=== PATIENT | female | born 1935 | race Caucasian/White ===

== ENCOUNTER 2017-04-23 20:35 | Emergency (ER) | payer OTHER ==
[~2017-04-23] VITALS: Ht 149.9 cm; Wt 75.7 kg
[2017-04-23 20:41] VITALS: BP_SYST 162
--- NOTE | 2017-04-23 20:52 | NUR ---
Pt placed to ER bed 08. Report given to HENRY Hyde.
--- NOTE | 2017-04-23 21:16 | NUR ---
Pt brought to ED by daughter with c/o left foot bruising and pain. Reports that pain is 8/10 and begins in left foot and goes up to left knee. Pt fell on 04/21/17 and noticed the bruising today. Allergies to PCN. Ambulatory with walker/cane, which is her norm. Took ibuprofen last night per pt and it was helpful in relieving pain.
--- NOTE | 2017-04-23 21:16 | NUR ---
ED SUPERVISOR [employer] Mahogany at bedside examining pt
[2017-04-23] MEDS ORDERED: ACETAMINOPHEN 500 MG TABLET PO ONE (21:30)
[2017-04-23 22:15] VITALS: BP_SYST 162
--- NOTE | 2017-04-23 22:15 | NUR ---
Patient given written and verbal discharge instructions and verbalizes understanding. ER MD discussed with patient the results and treatment provided. Patient in stable condition. ID arm band removed. Rx of Tylenol Extra Strength given. Patient educated on pain management and to follow up with PMD in 2 days. Pain Scale 3/10 Opportunity for questions provided and answered.
== END 2017-04-23 22:15 | disposition home or self-care (01) ==
LOC: SED 20:35
DX: M25.562 Pain in left knee (principal); S92.322A Displaced fracture of second metatarsal bone, left foot, initial encounter for closed fracture; I10 Essential (primary) hypertension; M10.9 Gout, unspecified; Z88.0 Allergy status to penicillin; W19.XXXA Unspecified fall, initial encounter; Y93.89 Activity, other specified; Y92.89 Other specified places as the place of occurrence of the external cause; Y99.8 Other external cause status
CPT/HCPCS: 73564; 99284

== ENCOUNTER 2017-07-23 11:20 | Emergency (ER) | payer OTHER ==
[~2017-07-23] VITALS: Ht 149.9 cm; Wt 82.1 kg
[2017-07-23 11:30] VITALS: BP_SYST 105
[2017-07-23] MEDS ORDERED: KETOROLAC TROMETHAMINE 60 MG/2 ML VIAL IM ONE (14:45)
[2017-07-23] MEDS ORDERED: HYDROcodone/ACETAMIN 5-325 MG TAB (NORCO/ VICODIN) PO ONE (14:45)
[2017-07-23 16:26] LABS: BASOPHILS % (AUTO) 0.4 % (0.0-2.0); EOSINOPHILS # (AUTO) 0.5 K/uL (0.0-0.4); EOSINOPHILS % (AUTO) 7.2 % (0.0-4.0); HEMATOCRIT 33.7 % (36-48); HEMOGLOBIN 10.6 g/dL (12.0-16.0); LYMPHOCYTES # (AUTO) 1.8 K/uL (1.0-5.5); LYMPHOCYTES % (AUTO) 26.1 % (20.5-51.5); MEAN CORPUSCULAR HEMOGLOBIN 28 pg (27-31); MEAN CORPUSCULAR HGB CONC 32 % (32-36); MEAN CORPUSCULAR VOLUME 90 fL (79.0-98.0); MONOCYTES # (AUTO) 0.8 K/uL (0.0-1.0); MONOCYTES % (AUTO) 10.8 % (1.7-9.3); NEUTROPHILS # (AUTO) 3.9 K/uL (1.8-7.7); NEUTROPHILS % (AUTO) 55.5 % (40.0-70.0); PLATELET COUNT (AUTO) 264 K/uL (130-430); RED BLOOD CELL COUNT(AUTO) 3.76 MIL/uL (4.2-6.2); RED CELL DISTRIBUTION WIDTH 14.4 % (9.0-15.0)
[2017-07-23 16:51] LABS: ANION GAP 7 (5-15); CALCIUM 8.8 mg/dL (8.4-11.0); CHLORIDE 103 mmol/L (98-107); CREATININE 0.77 mg/dL (0.55-1.30); GLUCOSE 94 mg/dL (70-99); POTASSIUM 3.7 mmol/L (3.5-5.1); SODIUM SERUM 140 mmol/L (136-145); UREA NITROGEN, BLOOD 16 mg/dL (8-21)
[2017-07-23 17:02] LABS: ALANINE AMINOTRANSFERASE 24 U/L (12-78); ALBUMIN 2.8 g/dL (3.4-4.8); ASPARTATE AMINOTRANSFERASE 21 U/L (10-37); TOTAL BILIRUBIN 0.4 mg/dL (0.0-1.0)
[2017-07-23 17:58] VITALS: BP_SYST 166
== END 2017-07-23 17:58 | disposition home or self-care (01) ==
LOC: SED 11:20
DX: M13.89 Other specified arthritis, multiple sites (principal); I10 Essential (primary) hypertension; D64.9 Anemia, unspecified; F32.9 Major depressive disorder, single episode, unspecified; H54.8 Legal blindness, as defined in USA; G47.00 Insomnia, unspecified; Z88.0 Allergy status to penicillin
CPT/HCPCS: 29125; 36415; 71010; 73110; 80053; 84484; 85025; 85379; 93005; 96372; 99285; J1885

== ENCOUNTER 2018-06-10 09:35 | Emergency (ER) | payer OTHER ==
[~2018-06-10] VITALS: Ht 149.9 cm; Wt 89.4 kg
[2018-06-10 09:49] VITALS: BP_SYST 157
[2018-06-10] MEDS ORDERED: KETOROLAC TROMETHAMINE 60 MG/2 ML VIAL IM ONE (10:00)
[2018-06-10] MEDS ORDERED: ONDANSETRON 4 MG ODT TAB PO ONE (10:00)
[2018-06-10] MEDS ORDERED: fentaNYL CITRATE/PF 100 MCG/2 ML AMP IM ONE (10:00)
[2018-06-10 11:20] VITALS: BP_SYST 145
== END 2018-06-10 11:20 | disposition home or self-care (01) ==
LOC: SED 09:35
DX: G89.29 Other chronic pain (principal); M25.511 Pain in right shoulder; M25.532 Pain in left wrist; F32.9 Major depressive disorder, single episode, unspecified; M10.9 Gout, unspecified; M19.90 Unspecified osteoarthritis, unspecified site; I10 Essential (primary) hypertension
CPT/HCPCS: 96372; 99284; J1885; J3010; Q0162

== ENCOUNTER 2018-07-10 21:05 | Emergency (ER) | payer OTHER ==
[~2018-07-10] VITALS: Ht 149.9 cm; Wt 81.6 kg
[2018-07-10 21:10] VITALS: BP_SYST 132
[2018-07-10 22:40] LABS: BILIRUBIN,URINE NEGATIVE (NEGATIVE); BLOOD, URINE 1+ (NEGATIVE); CLARITY/URINE CLEAR (CLEAR); COLOR,URINE YELLOW (YELLOW); GLUCOSE,URINE NEGATIVE (NEGATIVE); KETONES,URINE NEGATIVE (NEGATIVE); LEUKOCYTE ESTERASE ,URINE NEGATIVE (NEGATIVE); NITRITE, URINE NEGATIVE (NEGATIVE); PROTEIN URINE NEGATIVE (NEGATIVE); UROBILINOGEN,URINE 0.2 (0.2-1.0)
[2018-07-10 23:03] LABS: BACTERIA,URINE FEW /HPF (None Seen); WBC,URINE 0-3 /HPF (0-3)
[2018-07-10 23:25] LABS: BASOPHILS # (AUTO) 0.1 K/uL (0.0-0.2); BASOPHILS % (AUTO) 0.7 % (0.0-2.0); EOSINOPHILS # (AUTO) 0.4 K/uL (0.0-0.4); HEMATOCRIT 39.3 % (36-48); HEMOGLOBIN 13.1 g/dL (12.0-16.0); LYMPHOCYTES # (AUTO) 2.2 K/uL (1.0-5.5); LYMPHOCYTES % (AUTO) 24.5 % (20.5-51.5); MEAN CORPUSCULAR HEMOGLOBIN 30 pg (27-31); MEAN CORPUSCULAR HGB CONC 34 % (32-36); MEAN CORPUSCULAR VOLUME 88 fL (79.0-98.0); MONOCYTES # (AUTO) 0.9 K/uL (0.0-1.0); MONOCYTES % (AUTO) 10.2 % (1.7-9.3); NEUTROPHILS # (AUTO) 5.3 K/uL (1.8-7.7); NEUTROPHILS % (AUTO) 59.6 % (40.0-70.0); PLATELET COUNT (AUTO) 217 K/uL (130-430); RED BLOOD CELL COUNT(AUTO) 4.45 MIL/uL (4.2-6.2); RED CELL DISTRIBUTION WIDTH 13.6 % (9.0-15.0); WHITE BLOOD COUNT (AUTO) 8.9 K/uL (4.8-10.8)
[2018-07-10] MEDS ORDERED: KETOROLAC TROMETHAMINE 15 MG VIAL IVP ONE (23:30)
[2018-07-10 23:31] LABS: ANION GAP 9 (5-15); CALCIUM 9.6 mg/dL (8.4-11.0); CHLORIDE 102 mmol/L (98-107); CREATININE 0.85 mg/dL (0.55-1.30); GLUCOSE 101 mg/dL (70-99); POTASSIUM 3.9 mmol/L (3.5-5.1); SODIUM SERUM 139 mmol/L (136-145); UREA NITROGEN, BLOOD 10 mg/dL (8-21)
[2018-07-10 23:36] LABS: PROTHROMBIN TIME 10.1 SECS (9.5-12.5)
[2018-07-10 23:37] LABS: ALANINE AMINOTRANSFERASE 29 U/L (12-78); ALBUMIN 3.1 g/dL (3.4-4.8); ASPARTATE AMINOTRANSFERASE 27 U/L (10-37); TOTAL BILIRUBIN 0.5 mg/dL (0.0-1.0)
[2018-07-11 00:50] VITALS: BP_SYST 128
== END 2018-07-11 00:50 | disposition home or self-care (01) ==
LOC: SED 21:05
DX: R07.9 Chest pain, unspecified (principal); M10.9 Gout, unspecified; I10 Essential (primary) hypertension; G47.00 Insomnia, unspecified; M19.90 Unspecified osteoarthritis, unspecified site; Z91.09 Other allergy status, other than to drugs and biological substances
CPT/HCPCS: 36415; 71045; 80053; 81000; 84484; 85025; 85610; 85730; 93005; 96374; 99285; J1885

== ENCOUNTER 2018-08-11 00:37 | Emergency (ER) | payer OTHER ==
[~2018-08-11] VITALS: Ht 149.9 cm; Wt 89.4 kg
[2018-08-11 00:45] VITALS: BP_SYST 154
--- NOTE | 2018-08-11 00:45 | NUR ---
Patient to ER bed 7 to gown for evaluation. Side rails up. Report given to HENRY LEPE.
--- NOTE | 2018-08-11 00:50 | NUR ---
Patient AOx4, ambulatory, presents to ER with complaint of right posterior lower calf swelling and pain 8. Patient has hx of blood clots and varicose veins. Patient also states CP D/T cough x1 week. Patient noted with swelling and redness to bilateral lower legs. No other symptoms or complaints. Daughter at bedside.
--- NOTE | 2018-08-11 00:56 | NUR ---
ER MD Vides at bedside for medical evaluation.
[2018-08-11] MEDS ORDERED: NACL 0.9% 1,000 ML IV ONE (01:00)
--- NOTE | 2018-08-11 01:20 | NUR ---
# 24 gauge angiocath placed to right wrist. Use of asceptic technique. Opsite placed over site. Blood return noted. Flushed with 10 cc of normal saline. No evidence of infiltration noted. Patient tolerated well.
[2018-08-11 01:40] LABS: BASOPHILS # (AUTO) 0.1 K/uL (0.0-0.2); BASOPHILS % (AUTO) 0.7 % (0.0-2.0); EOSINOPHILS # (AUTO) 0.3 K/uL (0.0-0.4); EOSINOPHILS % (AUTO) 4.5 % (0.0-4.0); HEMATOCRIT 37.6 % (36-48); LYMPHOCYTES # (AUTO) 2.1 K/uL (1.0-5.5); LYMPHOCYTES % (AUTO) 27.5 % (20.5-51.5); MEAN CORPUSCULAR HEMOGLOBIN 28 pg (27-31); MEAN CORPUSCULAR HGB CONC 32 % (32-36); MEAN CORPUSCULAR VOLUME 88 fL (79.0-98.0); MONOCYTES # (AUTO) 0.8 K/uL (0.0-1.0); MONOCYTES % (AUTO) 11.1 % (1.7-9.3); NEUTROPHILS # (AUTO) 4.2 K/uL (1.8-7.7); NEUTROPHILS % (AUTO) 56.2 % (40.0-70.0); PLATELET COUNT (AUTO) 288 K/uL (130-430); RED BLOOD CELL COUNT(AUTO) 4.27 MIL/uL (4.2-6.2); RED CELL DISTRIBUTION WIDTH 13.6 % (9.0-15.0); WHITE BLOOD COUNT (AUTO) 7.5 K/uL (4.8-10.8)
[2018-08-11 01:45] LABS: ANION GAP 11 (5-15); CALCIUM 9.2 mg/dL (8.4-11.0); CHLORIDE 102 mmol/L (98-107); CREATININE 0.89 mg/dL (0.55-1.30); GLUCOSE 98 mg/dL (70-99); POTASSIUM 3.5 mmol/L (3.5-5.1); SODIUM SERUM 139 mmol/L (136-145); UREA NITROGEN, BLOOD 14 mg/dL (8-21)
[2018-08-11 01:51] LABS: ALANINE AMINOTRANSFERASE 27 U/L (12-78); ASPARTATE AMINOTRANSFERASE 27 U/L (10-37); TOTAL BILIRUBIN 0.4 mg/dL (0.0-1.0)
[2018-08-11] MEDS ORDERED: SULFAMETHOXAZOLE/TRIMETHOPR DS 1 TABLET PO ONE (02:30)
[2018-08-11 02:41] LABS: BILIRUBIN,URINE NEGATIVE (NEGATIVE); BLOOD, URINE 1+ (NEGATIVE); CLARITY/URINE CLEAR (CLEAR); COLOR,URINE YELLOW (YELLOW); GLUCOSE,URINE NEGATIVE (NEGATIVE); KETONES,URINE NEGATIVE (NEGATIVE); LEUKOCYTE ESTERASE ,URINE TRACE (NEGATIVE); NITRITE, URINE NEGATIVE (NEGATIVE); PH,URINE 5.5 (5.0-8.0); PROTEIN URINE TRACE (NEGATIVE); UROBILINOGEN,URINE 0.2 (0.2-1.0)
--- NOTE | 2018-08-11 02:50 | NUR ---
No adverse reactions noted after medication administration. Will continue to monitor.
[2018-08-11 03:05] VITALS: BP_SYST 144
--- NOTE | 2018-08-11 03:05 | NUR ---
Patient given written and verbal discharge instructions and verbalizes understanding. ER MD discussed with patient the results and treatment provided. Patient in stable condition. ID arm band removed. IV catheter removed intact and dressing applied, no active bleeding. Rx of Bactrim and Promethazine given. Patient educated on pain management and to follow up with PMD. Pain Scale 2/10 tolerable to patient. Opportunity for questions provided and answered. Medication side effect fact sheet provided.
[2018-08-11 03:14] LABS: BACTERIA,URINE FEW /HPF (None Seen)
[2018-08-11 03:29] LABS: HYALINE CASTS, URINE 0-10 /LPF (None Seen)
== END 2018-08-11 03:05 | disposition home or self-care (01) ==
LOC: SED 00:37
DX: L03.115 Cellulitis of right lower limb (principal); J40 Bronchitis, not specified as acute or chronic; F32.9 Major depressive disorder, single episode, unspecified; I10 Essential (primary) hypertension; Z88.0 Allergy status to penicillin
CPT/HCPCS: 36415; 71045; 80053; 81000-TC; 83605; 84484; 85025; 87040-TC; 93005; 93970; 99285

== ENCOUNTER 2020-01-06 19:15 | Inpatient (IN) | payer OTHER ==
[~2020-01-06] VITALS: Ht 149.9 cm; Wt 81.6 kg
[2020-01-06 19:30] VITALS: BP_SYST 155
--- NOTE | 2020-01-06 19:30 | NUR ---
Patient triaged and placed in waiting room. VSS and patient appears in no acute distress at this time. Accompanied by daugther, awaiting available bed, and MD notified of need for MSE.
[2020-01-06 21:21] LABS: BASOPHILS % (AUTO) 0.6 % (0.0-2.0); EOSINOPHILS # (AUTO) 0.4 K/uL (0.0-0.4); EOSINOPHILS % (AUTO) 5.5 % (0.0-4.0); HEMATOCRIT 39.3 % (36-48); LYMPHOCYTES # (AUTO) 1.7 K/uL (1.0-5.5); LYMPHOCYTES % (AUTO) 21.8 % (20.5-51.5); MEAN CORPUSCULAR HEMOGLOBIN 30 pg (27-31); MEAN CORPUSCULAR HGB CONC 33 % (32-36); MEAN CORPUSCULAR VOLUME 90 fL (79.0-98.0); MONOCYTES # (AUTO) 0.8 K/uL (0.0-1.0); NEUTROPHILS # (AUTO) 4.8 K/uL (1.8-7.7); NEUTROPHILS % (AUTO) 62.1 % (40.0-70.0); PLATELET COUNT (AUTO) 250 K/uL (130-430); RED BLOOD CELL COUNT(AUTO) 4.37 MIL/uL (4.2-6.2); RED CELL DISTRIBUTION WIDTH 13.8 % (9.0-15.0); WHITE BLOOD COUNT (AUTO) 7.8 K/uL (4.8-10.8)
[2020-01-06 21:58] LABS: ALANINE AMINOTRANSFERASE 24 U/L (12-78); ALBUMIN 3.1 g/dL (3.4-4.8); ANION GAP 8 (5-15); ASPARTATE AMINOTRANSFERASE 23 U/L (10-37); CALCIUM 9.3 mg/dL (8.4-11.0); CHLORIDE 101 mmol/L (98-107); CREATININE 0.92 mg/dL (0.55-1.30); GLUCOSE 112 mg/dL (70-99); SODIUM SERUM 133 mmol/L (136-145); TOTAL BILIRUBIN 0.4 mg/dL (0.0-1.0); UREA NITROGEN, BLOOD 24 mg/dL (8-21)
--- NOTE | 2020-01-07 01:44 | NUR ---
Patient to ER bed 3 to gown for evaluation. Side rails up. Report given to Mary Ellen FIGUEROA.
--- NOTE | 2020-01-07 02:05 | NUR ---
ER Dr. Pike at bedside examining patient.
--- NOTE | 2020-01-07 02:26 | NUR ---
Patient brought in complaining of productive cough and congestion x 1 month. Pt reports being diagnosed by PMD with bronchitis 1 month ago for cough and congestion. Patient also complaining of neck pain and intermittent non radiating chest pain. Pain 6/10. Denies any nausea, vomiting or diarrhea. No other complaints/injuries per patient or as noted. Will continue to monitor
[2020-01-07] MEDS ORDERED: IOHEXOL 350 mgI/mL, 150 ML INFUS..BTL IV ONE (05:01)
--- NOTE | 2020-01-07 06:00 | NUR ---
ER Dr. Pike at bedside re-examining patient.
[2020-01-07] MEDS ORDERED: LEVO750T45 PO (06:18)
[2020-01-07] MEDS ORDERED: ALLO300T2 PO (06:18)
[2020-01-07] MEDS ORDERED: TYC3 PO (06:18)
[2020-01-07] MEDS ORDERED: MECL12.584 PO (06:18)
[2020-01-07] MEDS ORDERED: METR500T PO (06:18)
[2020-01-07] MEDS ORDERED: ROPI0.252 PO (06:18)
[2020-01-07] MEDS ORDERED: OLME40TA12 PO (06:18)
[2020-01-07] MEDS ORDERED: SERT-131 PO (06:18)
--- NOTE | 2020-01-07 06:28 | NUR ---
Awaiting bed assignment.
--- NOTE | 2020-01-07 06:28 | NUR ---
Patient will be admitted to care of Dr. Ovalle. Admitted to Telemetry unit. Belongings list completed. Complete and up to date summary report printed. SBAR report to be given at bedside with opportunity for questions.
--- NOTE | 2020-01-07 07:13 | NUR ---
REPORT RECEIVED FROM SARAH FIGUEROA. CURRENTLY WAITING FOR A TELE BED.
--- NOTE | 2020-01-07 07:13 | NUR ---
Report given to HENRY Farias. All care endorsed.
--- NOTE | 2020-01-07 08:00 | NUR ---
Notes- in bed, awake, alert forgetfull, family at bedside. denies any chest pain or discomfort at this time. oriented to call light use. provided bedside commode at this time. Sinus on the monitor. Will continue to monitor.
--- NOTE | 2020-01-07 08:29 | NUR ---
Patient will be admitted to care of Dr. Ovalle. Admitted to tele unit. Will go to room 124-a. Belongings list completed. Complete and up to date summary report printed. SBAR report to be given at bedside with opportunity for questions. bedside reprt given. Iv is on the RFA 20g patent and infusing well.
--- NOTE | 2020-01-07 08:41 | NUR ---
Admission Note Received patient from ER with diagnosis of chest pain. Initial Plan of Care discussed-patient verbalized understanding. Oriented to room, call light, pain management and safety.
--- NOTE | 2020-01-07 09:13 | NUR ---
CHEST PAIN CONSULT FOR . NURSE NOTIFY DOCTOR WHILE DOING HIS ROUNDS.
[2020-01-07 09:24] VITALS: BP_SYST 154
--- NOTE | 2020-01-07 09:30 | NUR ---
MD rounds- Seen by santo at bedside.
[2020-01-07] MEDS ORDERED: ALLOPURINOL 300 MG TABLET (ZYLOPRIM) PO ONE (11:00)
--- NOTE | 2020-01-07 11:00 | NUR ---
MD ROUNDS Seen by Dr. michael at bedside and spoke to family.
--- NOTE | 2020-01-07 11:14 | NUR ---
Notes- resting at this time. family at bedside. denies any chest pain or discomfort.
[2020-01-07] MEDS ORDERED: IPRATROPIUM/ALBUTEROL SULFATE 3 ML AMPUL.NEB (DUONEB) INH PRN (11:45)
[2020-01-07] MEDS ORDERED: LOSARTAN POTASSIUM 50 MG TABLET (COZAAR) PO ONE (12:30)
[2020-01-07 14:36] VITALS: BP_SYST 154
[2020-01-07] MEDS: roPINIRole HCL 0.25 MG ( REQUIP )TABLET PO SCH ×2 (14:39→20:28)
[2020-01-07 16:00] VITALS: BP_SYST 122
--- NOTE | 2020-01-07 16:02 | NUR ---
Notes- Resting in bed, family at bedside. denies any pain or discomfort. No acute distress noted.
--- NOTE | 2020-01-07 18:20 | NUR ---
Notes- Resting in bed, denies any pain or discomfort. No change in assessment. Will endorse
[2020-01-07 19:40] VITALS: BP_SYST 114
--- NOTE | 2020-01-07 19:40 | NUR ---
INITIAL NOTES PATIENT IS LAYING IN BED AND STABLE. NO S/S OF RESPIRATORY DISTRESS NOTED. PATIENT UNSUCCESSFULLY DEMONSTRATES USAGE OF CALL LIGHT AT THIS TIME. WILL CONTINUE TO MONITOR FREQUENTLY. PLAN OF CARE IS DISCUSSED WITH PATIENT AT THIS TIME. BED IS LOCKED, ALARMED, AND AT THE LOWEST POSITION. FALL, SAFETY, ASPIRATION, AND RESPIRATORY PRECAUTIONS WILL BE IN PLACE THROUGHOUT THE SHIFT.
--- NOTE | 2020-01-07 20:40 | NUR ---
PATIENT FAMILY IS BY BEDSIDE AT THIS TIME. PATIENT IS STABLE AND SITTING IN BED. NO S/S OF RESPIRATORY DISTRESS NOTED. CALL LIGHT IN REACH. BED IS LOCKED, ALARMED, AND AT THE LOWEST POSITION.
--- NOTE | 2020-01-07 22:40 | NUR ---
PATIENT USED THE RESTROOM AT THIS TIME. PATIENT TOLERATED WELL. PATIENT IS STABLE. NO S/S OF RESPIRATORY DISTRESS NOTED. CALL LIGHT IN REACH. BED IS LOCKED, ALARMED, AND AT THE LOWEST POSITION.
[2020-01-08 00:11] VITALS: BP_SYST 146
--- NOTE | 2020-01-08 00:40 | NUR ---
PATIENT IS SLEEPING AND STABLE. NO S/S OF RESPIRATORY DISTRESS NOTED. CALL LIGHT IN REACH. BED IS LOCKED, ALARMED, AND AT THE LOWEST POSITION.
--- NOTE | 2020-01-08 01:20 | NUR ---
Patient is doing well, her family is at her bedside. She is being groomer by her daughter and she seems to be in good spirits. Will continue to assess. Juliana FIGUEROA
--- NOTE | 2020-01-08 04:32 | NUR ---
PATIENT IS STABLE AND SLEEPING. NO S/S OF RESPIRATORY DISTRESS NOTED. CALL LIGHT IN REACH. BED IS LOCKED, ALARMED, AND AT THE LOWEST POSITION.
--- NOTE | 2020-01-08 06:33 | NUR ---
CLOSING NOTES PATIENT IS RESTING IN BED. PATIENT IS STABLE. NO S/S OF RESPIRATORY DISTRESS NOTED. CALL LIGHT IN REACH. BED IS LOCKED, ALARMED, AND AT THE LOWEST POSITION. FALL, SAFETY, ASPIRATION, AND RESPIRATORY PRECAUTIONS HAS BEEN IN PLACE THROUGHOUT THE SHIFT. WILL CONTINUE TO MONITOR UNTIL REPORT IS GIVEN AM NURSE BY BEDSIDE.
[2020-01-08 07:30] VITALS: BP_SYST 89
[2020-01-08 08:00] VITALS: BP_SYST 89
[2020-01-08] MEDS: SERTRALINE HCL 50 MG TABLET PO SCH (08:25)
[2020-01-08] MEDS: ALLOPURINOL 300 MG TABLET (ZYLOPRIM) PO SCH (08:31)
--- NOTE | 2020-01-08 08:59 | NUR ---
Nutrition Update Min Scale 17 noted. Pt admitted for chest pain. Diet: cardiac BMI: 36.4 kg/m2 RD to follow per nutrition care standards.
--- NOTE | 2020-01-08 09:00 | NUR ---
PATIENT IS STABLE, A LITTLE HARD OF HEARING BUT HEARS WELL WHEN HER HEARING AIDS ARE ON. SHE COMPREHENDS ORDERS, ATE BREAKFAST, TOOK HER MEDS AND WENT TO SLEEP. FÉLIX FIGUEROA
[2020-01-08] MEDS: roPINIRole HCL 0.25 MG ( REQUIP )TABLET PO SCH ×3 (09:48→22:15)
[2020-01-08] MEDS: LOSARTAN POTASSIUM 50 MG TABLET (COZAAR) PO SCH (09:50)
[2020-01-08 12:00] VITALS: BP_SYST 108
--- NOTE | 2020-01-08 12:46 | NUR ---
[facility] consult called: for Dr. Hernandez, regarding pna, ordered by Dr. Ovalle, spoke with Marii at exchange.
[2020-01-08 16:22] VITALS: BP_SYST 141
--- NOTE | 2020-01-08 16:28 | NUR ---
Patient is at bedside sitting on chair. She states that she feels nausea, I paged Dr. Ovalle to ask for nausea medication. I am waiting for call back. Tuan FIGUEROA
[2020-01-08] MEDS: BUDESONIDE 0.5 MG/2 ML AMPUL.NEB INH SCH (19:55)
[2020-01-08 20:00] VITALS: BP_SYST 137
[2020-01-08] MEDS: ONDANSETRON HCL 4 MG/2 ML VIAL IVP PRN (22:19)
--- NOTE | 2020-01-08 23:19 | NUR ---
CONSULT DOCTOR MARK ALREADY SAW PT
[2020-01-09] VITALS (7 sets, daily range): BP systolic 98–136
[2020-01-09] MEDS: BUDESONIDE 0.5 MG/2 ML AMPUL.NEB INH SCH ×2 (07:00→22:34)
[2020-01-09 07:21] LABS: BASOPHILS % (AUTO) 0.6 % (0.0-2.0); EOSINOPHILS # (AUTO) 0.2 K/uL (0.0-0.4); EOSINOPHILS % (AUTO) 3.4 % (0.0-4.0); HEMATOCRIT 35.5 % (36-48); HEMOGLOBIN 11.9 g/dL (12.0-16.0); LYMPHOCYTES # (AUTO) 1.5 K/uL (1.0-5.5); LYMPHOCYTES % (AUTO) 21.8 % (20.5-51.5); MEAN CORPUSCULAR HEMOGLOBIN 30 pg (27-31); MEAN CORPUSCULAR HGB CONC 33 % (32-36); MEAN CORPUSCULAR VOLUME 90 fL (79.0-98.0); MONOCYTES # (AUTO) 0.8 K/uL (0.0-1.0); MONOCYTES % (AUTO) 11.3 % (1.7-9.3); NEUTROPHILS # (AUTO) 4.4 K/uL (1.8-7.7); NEUTROPHILS % (AUTO) 62.9 % (40.0-70.0); PLATELET COUNT (AUTO) 244 K/uL (130-430); RED BLOOD CELL COUNT(AUTO) 3.97 MIL/uL (4.2-6.2); RED CELL DISTRIBUTION WIDTH 13.7 % (9.0-15.0)
[2020-01-09 07:36] LABS: ALANINE AMINOTRANSFERASE 24 U/L (12-78); ALBUMIN 2.8 g/dL (3.4-4.8); ANION GAP 8 (5-15); ASPARTATE AMINOTRANSFERASE 26 U/L (10-37); CALCIUM 8.8 mg/dL (8.4-11.0); CHLORIDE 96 mmol/L (98-107); GLUCOSE 104 mg/dL (70-99); POTASSIUM 3.8 mmol/L (3.5-5.1); SODIUM SERUM 130 mmol/L (136-145); TOTAL BILIRUBIN 0.5 mg/dL (0.0-1.0); UREA NITROGEN, BLOOD 16 mg/dL (8-21)
[2020-01-09] MEDS: LOSARTAN POTASSIUM 50 MG TABLET (COZAAR) PO SCH (09:23)
[2020-01-09] MEDS: ALLOPURINOL 300 MG TABLET (ZYLOPRIM) PO SCH (09:23)
[2020-01-09] MEDS: SERTRALINE HCL 50 MG TABLET PO SCH (09:24)
[2020-01-09] MEDS: roPINIRole HCL 0.25 MG ( REQUIP )TABLET PO SCH ×3 (09:24→22:07)
--- NOTE | 2020-01-09 10:02 | NUR ---
Found on the floor, asked for pain meds for the patient. Waiting for order, gave ice pack in the meantime. Tuan FIGUEROA
--- NOTE | 2020-01-09 11:44 | NUR ---
CONSULTATION PAGED/CALLED Reason for Consultation: [] CONFUSION Person Who was Notified: [] PACO Consulting Physician: [] DR Marky HERNANDEZ Production Technologist Specialty: [] NEUROLOGY Ordering Physician: [] DR VERDUGO
[2020-01-09] MEDS: ONDANSETRON HCL 4 MG/2 ML VIAL IVP PRN (12:40)
--- NOTE | 2020-01-09 15:00 | NUR ---
Patient family requesting a discharge, consulted with and he advised against it, he wants a neuro consult before discharge. The process was explained to the family members. They stated that they will have a family member stay with her overnight. Bed is low, locked, 2 side rails up and call light within reach. Tuan FIGUEROA
--- NOTE | 2020-01-09 15:14 | NUR ---
Paged , second page to get pain medication. Waiting for jez. Tuan FIGUEROA
[2020-01-09] MEDS: ACETAMINOPHEN 325 MG TABLET PO PRN (15:59)
--- NOTE | 2020-01-09 18:07 | NUR ---
Patient is stable, sleeping. bed is low, locked, 2 side rails up and call light within reach. Tuan FIGUEROA
--- NOTE | 2020-01-09 18:57 | NUR ---
Neuro Consult: Seen by Dr. Sal , new orders noted. Cardio Dept is aware of EEG order.
--- NOTE | 2020-01-09 19:20 | NUR ---
Opening note Received patient resting in bed, awake, no s/sx of distress. Daughter in law at bedside with patient. IV is SL to RFA. Bed is locked in lowest position, side rails up 2x, updated board.
--- NOTE | 2020-01-09 20:22 | NUR ---
Taken to CT Kiran from radiology took patient for CT study
--- NOTE | 2020-01-09 20:48 | NUR ---
returned from CT
--- NOTE | 2020-01-09 20:53 | NUR ---
Ultrasound Patient ambulated to restroom and returned to w/ assist. Daughter in law and son at bedside. unit technician at bed side for US venous doppler study.
[2020-01-10] MEDS: ACETAMINOPHEN 325 MG TABLET PO PRN (00:06)
--- NOTE | 2020-01-10 00:10 | NUR ---
Patient care Patient provided w/ partial bed bath, new gown. V/S taken and has temp of 99.4; administered Tylenol will f/u. Son at bedside w/ patient. No further needs, call light w/in reach.
--- NOTE | 2020-01-10 01:35 | NUR ---
temp reassess temp decreased to 98.4, patient resting in comfortable position, no sign of distress. Son is sitting at bedside.
[2020-01-10 01:58] VITALS: BP_SYST 116
--- NOTE | 2020-01-10 03:30 | NUR ---
Resting Patient resting w/ eyes closed, nonlabored breathing. Son visiting at bedside also resting on chair w/ eyes closed.
--- NOTE | 2020-01-10 06:39 | NUR ---
closing note Patient resting in comfortable position, nonlabored breathing. Son at bedside with mother and he reports assisted her to restroom a few minutes ago. Needs met throughout shift, safety precautions in place, will endorse care to incoming nurse.
--- NOTE | 2020-01-10 07:50 | NUR ---
INITIAL NOTE RECEIVED PT IN BED, NO S/S OF DISTRESS OR SOB NOTED, PT HAS NO C/O PAIN AT THIS TIME, PT IN STABLE CONDITION, PT AAOX3, VERBAL, MARSHALLESE SPEAKING. PT RESTING COMFORTABLY, BED AT LOWEST POSITION, CALL LIGHT WITHIN REACH, WILL CONTINUE TO MONITOR PT FOR ANY CHANGES, FALL AND SAFETY PRECAUTIONS IN PLACE. FAMILY AT BEDSIDE. PT ON OXYGEN 1 LITER VIA NASAL CANNULA, SATURATION OF 93%.
[2020-01-10 08:20] VITALS: BP_SYST 118
[2020-01-10] MEDS: SERTRALINE HCL 50 MG TABLET PO SCH (08:56)
[2020-01-10] MEDS: roPINIRole HCL 0.25 MG ( REQUIP )TABLET PO SCH ×3 (08:56→20:20)
[2020-01-10] MEDS: ALLOPURINOL 300 MG TABLET (ZYLOPRIM) PO SCH (08:56)
[2020-01-10] MEDS: LOSARTAN POTASSIUM 50 MG TABLET (COZAAR) PO SCH (08:57)
--- NOTE | 2020-01-10 10:30 | NUR ---
ROUNDS PT IN BED, NO S/S OF DISTRESS OR SOB NOTED, PT HAS NO C/O PAIN AT THIS TIME, PT IN STABLE CONDITION, FAMILY AT BEDSIDE, WILL CONTINUE TO MONITOR PT FOR ANY CHANGES.
--- NOTE | 2020-01-10 12:17 | NUR ---
ROUNDS DR LUCINA JASON, WENT TO SEE PT AND SPOKE WITH PT AND FAMILY IN REGARDS TO POC. ANSWERED ALL QUESTIONS.
[2020-01-10 12:30] VITALS: BP_SYST 134
--- NOTE | 2020-01-10 12:40 | NUR ---
CONSULTATION PAGED/CALLED Reason for Consultation: ABDOMINAL PAIN Person Who was Notified: SPOKE WITH FILEMON FROM Consulting Physician: IS COMPRESSOR MECHANIC FOR DR. ENCISO Medical Office Manager Specialty: Ordering Physician: Addendum: 01/10/20 at 1245 by Melisa Mata CNA [employer] SPECIALTY : GI ORDERING PHYSICIAN :
[2020-01-10] MEDS: ONDANSETRON HCL 4 MG/2 ML VIAL IVP PRN ×3 (12:59→23:17)
--- NOTE | 2020-01-10 13:29 | NUR ---
MEDICATION REASSESSMENT PT NO LONGER FEELS NAUSEAS, NO VOMITING NOTED. WILL CONTINUE TO MONITOR PT FOR ANY CHANGES.
[2020-01-10 16:20] VITALS: BP_SYST 103
--- NOTE | 2020-01-10 18:32 | NUR ---
CLOSING NOTE PT IN BED, NO S/S OF DISTRESS OR SOB NOTED, PT HAS NO C/O PAIN AT THIS TIME, PT IN STABLE CONDITION, PT AAOX3, VERBAL, FRISIAN SPEAKING. PT RESTING COMFORTABLY, BED AT LOWEST POSITION, CALL LIGHT WITHIN REACH, WILL ENDORSE CARE OF PT TO INCOMING NURSE, FALL AND SAFETY PRECAUTIONS IN PLACE. FAMILY AT BEDSIDE. PT ON OXYGEN 1 LITER VIA NASAL CANNULA, SATURATION OF 93%. NEEDS MET THROUGHOUT SHIFT. EEG WAS DONE BY TECH.
--- NOTE | 2020-01-10 19:25 | NUR ---
veterinary technician assistant Sheeba heat treatment technician came to room for study and reports she is unable to do study d/t patient reporting nausea. I informed her I can give Zofran for nausea and she said, no d/t study will make patient uncomfortable and she said it is better to do study in am. It will be done first thing at 0700.
[2020-01-10 20:00] VITALS: BP_SYST 132
[2020-01-10] MEDS: BUDESONIDE 0.5 MG/2 ML AMPUL.NEB INH SCH (20:55)
--- NOTE | 2020-01-10 22:45 | NUR ---
IV start IV to RFA was occluded and a new IV was started. A # 20 gauge angiocath was placed to LAC. Use of asceptic technique. Opsite placed over site. Blood return noted and it was flushed with 10 cc of normal saline. No evidence of infiltration noted. Patient tolerated . Family at bedside.
--- NOTE | 2020-01-10 23:20 | NUR ---
radha Patient reporting nausea and she was given Zofran. Family left for the night, bed alarm is on and call light w/in reach. Will continue to monitor.
--- NOTE | 2020-01-11 00:25 | NUR ---
V/S / NPO Patient's VSS. She was reminded that she will be NPO. She was offered water and juice and after she was done the food items at bedside were removed from reach. The board was updated and an NPO cone was place on bedside tray.
--- NOTE | 2020-01-11 02:15 | NUR ---
OOB -restroom Assisted patient out of bed to restroom, she voided, then washed hands and brushed teeth. She rested on chair a few minutes while I changed bed linen. She returned to bed, bed alarm on and call light w/in reach. Will continue to monitor.
--- NOTE | 2020-01-11 04:40 | NUR ---
Resting Patient is resting w/ eyes closed. Symmetrical rise and fall of chest, nonlabored breathing. Safety precautions in place and call light w/in reach.
--- NOTE | 2020-01-11 06:15 | NUR ---
restroom Assisted patient out of bed to restroom, she voided, then washed hands and returned to bed. Presently denies nausea or abdominal discomfort. Bed alarm on and call light w/in reach. Will continue to monitor.
--- NOTE | 2020-01-11 07:00 | NUR ---
closing note Patient resting in comfortable position, nonlabored breathing, no s/sx of distress. IV is SL to LAC, Safety precautions in place. Needs met throughout shift, will endorse care to incoming nurse.
--- NOTE | 2020-01-11 07:40 | NUR ---
Initial notes- assisted to the bathroom and voided. pt denies any chest pain, abdominal pain. pt complains of being dizzy upon getting up. on room air, tolerating well. no acute distress noted. Keep npo for abdominal ultrasound this morning.
[2020-01-11 08:00] VITALS: BP_SYST 139
[2020-01-11] MEDS: BUDESONIDE 0.5 MG/2 ML AMPUL.NEB INH SCH (08:14)
[2020-01-11 08:15] VITALS: BP_SYST 139
[2020-01-11] MEDS: ALLOPURINOL 300 MG TABLET (ZYLOPRIM) PO SCH (09:16)
[2020-01-11] MEDS: SERTRALINE HCL 50 MG TABLET PO SCH (09:16)
[2020-01-11] MEDS: LOSARTAN POTASSIUM 50 MG TABLET (COZAAR) PO SCH (09:17)
[2020-01-11] MEDS: roPINIRole HCL 0.25 MG ( REQUIP )TABLET PO SCH ×2 (09:18→15:00)
--- NOTE | 2020-01-11 09:30 | NUR ---
Notes- Abdominal ultrasound done, breakfast given to patient. family at bedside. enc. patient and family to call for any help as needed.
[2020-01-11] MEDS: ACETAMINOPHEN 325 MG TABLET PO PRN (10:30)
--- NOTE | 2020-01-11 12:06 | NUR ---
Notes- Resting in bed, no acute distress noted. family at bedside.
[2020-01-11] MEDS: ONDANSETRON HCL 4 MG/2 ML VIAL IVP PRN (13:29)
--- NOTE | 2020-01-11 15:36 | NUR ---
Notes- Resting in bed, family at bedside. No distress noted.
[2020-01-11 16:35] VITALS: BP_SYST 128
[2020-01-11] MEDS ORDERED: ASPI-1457 PO (16:50)
[2020-01-11] MEDS ORDERED: ESOM40CA53 PO (16:52)
[2020-01-11] MEDS ORDERED: LEVO500T89 PO (17:02)
[2020-01-11] MEDS ORDERED: IPRA4AER INH (17:04)
[2020-01-11 17:28] VITALS: BP_SYST 128
--- NOTE | 2020-01-11 18:18 | NUR ---
Discharge D/c pt home accompanied by family member. Denies any chest pain or abdominal pain, nausea is better. Discharge instruction and follow up is discussed with patient and family. Verbalize understanding. IVL removed.
--- NOTE | 2020-01-14 15:22 | NUR ---
Discharge Follow Up Phone Call Phoned patient, , and spoke with patient's daughter, Violeta. Violeta stated that patient was doing okay. She attended a follow up appointment with her PCP on 01/13/20 and again today because of a UTI. SUPERVISOR [employer] asked if she had brought in hospital paperwork and if PCP was aware of the multinodular goiter. She said she had. No questions or concerns.
== END 2020-01-11 18:18 | disposition home or self-care (01) | DRG 190 ==
LOC: SED 19:15 → STU 01-07 06:26
PROVIDERS: ADMIT Internal Medicine Hospice and Palliative Medicine; ATTEND Internal Medicine Hospice and Palliative Medicine
DX: J44.0 Chronic obstructive pulmonary disease with (acute) lower respiratory infection (principal); J18.9 Pneumonia, unspecified organism; E87.1 Hypo-osmolality and hyponatremia; J20.9 Acute bronchitis, unspecified; J44.1 Chronic obstructive pulmonary disease with (acute) exacerbation; R07.89 Other chest pain; I10 Essential (primary) hypertension; M10.9 Gout, unspecified; E66.9 Obesity, unspecified; Z96.659 Presence of unspecified artificial knee joint; F32.9 Major depressive disorder, single episode, unspecified; Z51.5 Encounter for palliative care; Z66 Do not resuscitate; M19.90 Unspecified osteoarthritis, unspecified site; M54.5 Low back pain; M25.539 Pain in unspecified wrist; G89.29 Other chronic pain; J84.10 Pulmonary fibrosis, unspecified; E78.5 Hyperlipidemia, unspecified; M79.7 Fibromyalgia; H54.8 Legal blindness, as defined in USA; Z90.710 Acquired absence of both cervix and uterus; Z86.718 Personal history of other venous thrombosis and embolism; Z85.89 Personal history of malignant neoplasm of other organs and systems; Z88.0 Allergy status to penicillin; Z79.899 Other long term (current) drug therapy; Z68.36 Body mass index [BMI] 36.0-36.9, adult
CPT/HCPCS: 36415; 70450-TC; 71045; 71275; 76700-TC; 80053; 82607; 83880; 84443-TC; 84484; 85025; 85379; 93005; 93306; 93970; 94640; 94760; 95816; 99285; G0378; J2405; J7620; J7626; Q9967

== ENCOUNTER 2022-03-31 16:45 | Emergency (ER) | payer OTHER ==
[~2022-03-31] VITALS: Ht 149.9 cm; Wt 84.8 kg
[~2022-03-31 16:45] MED LIST: ALLO300T2 PO; ASPI-1457 PO; ESOM40CA53 PO; IPRA4AER INH; LEVO500T90 PO; OLME40TA12 PO; ROPI0.252 PO; SERT-131 PO; TYC3 PO
[2022-03-31 16:55] VITALS: BP_SYST 144
[2022-03-31] MEDS ORDERED: DIPH-TET-PERTUS Vaccine 0.5 ML VIAL (ADACEL) I.M. ONE (17:00)
[2022-03-31] MEDS ORDERED: BACITRACIN 1 GM OINT TP ONE (17:00)
[2022-03-31 18:26] VITALS: BP_SYST 133
== END 2022-03-31 18:17 | disposition home or self-care (01) ==
LOC: SED 16:45
DX: S80.811A Abrasion, right lower leg, initial encounter (principal); I10 Essential (primary) hypertension; K21.9 Gastro-esophageal reflux disease without esophagitis; Z88.0 Allergy status to penicillin; W22.8XXA Striking against or struck by other objects, initial encounter; Y93.89 Activity, other specified; Y92.89 Other specified places as the place of occurrence of the external cause; Y99.8 Other external cause status
CPT/HCPCS: 90715; 99283

== ENCOUNTER 2022-04-10 11:14 | Emergency (ER) | payer OTHER ==
[~2022-04-10] VITALS: Ht 149.9 cm; Wt 84.8 kg
[2022-04-10 11:28] VITALS: BP_SYST 178
--- NOTE | 2022-04-10 11:28 | NUR ---
ER at bedside examining patient.
--- NOTE | 2022-04-10 11:45 | NUR ---
In Er bed 6 C/O Bilateral leg wounds that are seeping. Currently on Keflex that is not working. Blood and urine sent. Awaiting results. Family at bedside
[2022-04-10 12:19] LABS: HEMOGLOBIN 10.3 g/dL (12.0-16.0); MEAN CORPUSCULAR VOLUME 90 fL (79.0-98.0)
[2022-04-10 12:20] LABS: BILIRUBIN,URINE NEGATIVE (NEGATIVE); BLOOD, URINE 1+ (NEGATIVE); CLARITY/URINE CLEAR (CLEAR); COLOR,URINE YELLOW (YELLOW); GLUCOSE,URINE NEGATIVE (NEGATIVE); KETONES,URINE NEGATIVE (NEGATIVE); LEUKOCYTE ESTERASE ,URINE TRACE (NEGATIVE); NITRITE, URINE POSITIVE (NEGATIVE); PH,URINE 5.5 (5.0-8.0); PROTEIN URINE NEGATIVE (NEGATIVE); UROBILINOGEN,URINE 0.2 (0.2-1.0)
[2022-04-10 12:22] LABS: ANION GAP 8 (5-15); CALCIUM 7.9 mg/dL (8.4-11.0); CHLORIDE 105 mmol/L (98-107); GLUCOSE 119 mg/dL (70-99); POTASSIUM 4.3 mmol/L (3.5-5.1); SODIUM SERUM 136 mmol/L (136-145); UREA NITROGEN, BLOOD 31 mg/dL (8-21)
[2022-04-10 12:24] LABS: BASOPHILS % (AUTO) 0.3 % (0.0-2.0); EOSINOPHILS % (AUTO) 0.3 % (0.0-4.0); HEMATOCRIT 31.5 % (36-48); LYMPHOCYTES # (AUTO) 1.4 K/uL (1.0-5.5); LYMPHOCYTES % (AUTO) 15.5 % (20.5-51.5); MEAN CORPUSCULAR HEMOGLOBIN 30 pg (27-31); MEAN CORPUSCULAR HGB CONC 33 % (32-36); MONOCYTES # (AUTO) 0.5 K/uL (0.0-1.0); MONOCYTES % (AUTO) 5.9 % (1.7-9.3); NEUTROPHILS # (AUTO) 6.9 K/uL (1.8-7.7); PLATELET COUNT (AUTO) 261 K/uL (130-430); RED BLOOD CELL COUNT(AUTO) 3.49 MIL/uL (4.2-6.2); RED CELL DISTRIBUTION WIDTH 15.5 % (9.0-15.0); WHITE BLOOD COUNT (AUTO) 8.9 K/uL (4.8-10.8)
[2022-04-10 12:29] LABS: BACTERIA,URINE MODERATE /HPF (None Seen)
[2022-04-10 12:30] LABS: MUCUS,URINE 1+ /LPF (None Seen)
[2022-04-10 12:31] LABS: ALANINE AMINOTRANSFERASE 39 U/L (12-78); ALBUMIN 2.6 g/dL (3.4-4.8); ASPARTATE AMINOTRANSFERASE 22 U/L (10-37); TOTAL BILIRUBIN 0.2 mg/dL (0.0-1.0)
[2022-04-10 12:40] LABS: C-REACTIVE PROTEIN QUANT 1.5 mg/dL (0-0.5)
[2022-04-10 13:12] VITALS: BP_SYST 156
[2022-04-10] MEDS ORDERED: NITR-85 PO ×2 (14:06→14:26)
--- NOTE | 2022-04-10 14:10 | NUR ---
Patient given written and verbal discharge instructions and verbalizes understanding. ER MD discussed with patient the results and treatment provided. Patient in stable condition. ID arm band removed. Rx given. Patient educated on pain management and to follow up with PMD. Pain Scale . Opportunity for questions provided and answered. Medication side effect fact sheet provided.
--- NOTE | 2022-04-10 14:44 | NUR ---
MD at bedside with patient.
== END 2022-04-10 14:10 | disposition home or self-care (01) ==
LOC: SED 11:14
DX: I11.0 Hypertensive heart disease with heart failure (principal); I50.9 Heart failure, unspecified; K21.9 Gastro-esophageal reflux disease without esophagitis; Z88.0 Allergy status to penicillin; Z79.899 Other long term (current) drug therapy
CPT/HCPCS: 36415; 71045; 80053; 81000; 83880; 84484; 85025; 86140; 87086; 93005; 99285